=== PATIENT | male | born 1980 | race Caucasian/White ===

== ENCOUNTER 2016-12-19 07:15 | Emergency (ER) | payer SELFPAY | END 2016-12-19 08:02 | disposition home or self-care (01) | LOC: ER 07:15 | DX: G43.909 Migraine, unspecified, not intractable, without status migrainosus (principal); F17.210 Nicotine dependence, cigarettes, uncomplicated; Z88.0 Allergy status to penicillin | CPT/HCPCS: 96372; J1885 ==